=== PATIENT | female | born 1970 | race Caucasian/White ===

== ENCOUNTER 2016-08-20 06:46 | Day surgery (SDC) | payer OTHER ==
[~2016-08-20] VITALS: Ht 157.5 cm; Wt 70.1 kg
[~2016-08-20 06:46] MED LIST: ADVIL,NUPRIN,M200 MG PO; EXCEDRIN EXTRA1 EACH PO; FOCALIN10 MG PO; MIRENA52 MG IY; ORTHO TRI-CY1 TABLE1 PO; VENLAFAXINE HC150 M1 PO; VENLAFAXINE HCL75 M3 PO; WOMEN'S DAILY1 EACH PO
[2016-08-20 07:14] VITALS: BP 114/76
[2016-08-20] MEDS ORDERED: LORTAB 5-325 M1 EACH PO (09:17)
[2016-08-20 10:25] VITALS: BP 127/80
[2016-08-20 11:11] VITALS: BP 110/73
== END 2016-08-20 11:13 | disposition home or self-care (01) ==
LOC: SDC 06:46
PROC: 0UBC7ZX Excision of Cervix, Via Natural or Artificial Opening, Diagnostic (ICD-10-PCS; principal; 2016-08-20)
DX: D06.9 Carcinoma in situ of cervix, unspecified (principal); Z82.49 Family history of ischemic heart disease and other diseases of the circulatory system; Z83.3 Family history of diabetes mellitus
CPT/HCPCS: 88305; 88307; J1100; J2250; J3010